=== PATIENT | female | born 1995 | race Two or more races ===

== ENCOUNTER 2024-10-11 07:12 | Outpatient (CLI) | payer OTHER ==
[2024-10-11] MEDS ORDERED: STERILE WATER 10 ML ONE (08:55)
--- NOTE | 2024-10-11 12:31 | DVH ---
CLINICAL INFORMATION: 29 years old, Female; EPIGASTRIC PAIN. TECHNIQUE: 6 mCi of Choletec were administered intravenously. Images of the upper abdomen were obta ined at 1 minute intervals up to a total time of 60 minutes. Subsequently, 1.5 mcg Kinevac was admini stered intravenously, as per protocol, and repeat dynamic anterior regional images of the liver were obtained over an additional 30 minutes. A region of interest was drawn around the gallbladder, from [facility] a gallbladder ejection fraction was obtained. Time/activity profile curves were generated. COMPARISON: None FINDINGS: There is prompt gallbladder visualization. There is excretion of activity from the biliar y ductal system into the small bowel. There is no evidence of acute cholecystitis. The gallbladder ejection fraction is calculated to be 17%. IMPRESSION: 1. No scintigraphic evidence of acute cholecystitis. 2. Abnormal gallbladder ejection fraction of 17%, likely due to functional gallbladder disorder.
== END 2024-10-11 17:00 | disposition home or self-care (01) ==
LOC: XYW 07:12
DX: K82.8 Other specified diseases of gallbladder (principal); R10.13 Epigastric pain
CPT/HCPCS: 78226; A9537

== ENCOUNTER 2024-10-11 07:52 | Emergency (ER) | payer OTHER ==
[~2024-10-11] VITALS: Ht 162.6 cm; Wt 82.4 kg
--- NOTE | 2024-10-11 08:05 | ED.PDOC ---
History of Present Illness HPI Comments 29 year old female presents to the ED for the c/c of Dizziness. Pt was getting a scan here at [facility] when she started feeling N/. Pts HR is noted to have crashed and a rapid response was called to radiology. Pt was noted to be Diaphoretic. Pt notes her last meal was around 9pm last night. No other ass ociated symptoms, modifiers, recent injuries or sick contacts present at this time. 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 History Family History Family History: Reviewed,noncontributory to illness, No family hx of Cancer, No family hx of DM, No family hx of Heart khadar, No family hx of HTN, No family hx ofKidney khadar, No family hx of Liver khadar, No family hx of Lung khadar, No family hx of Stroke Social History Smoker: Non-Smoker Alcohol: Denies ETOH Use Drugs: Denies Drug Use Lives In: Home Constitutional: denies: chills, diaphoresis, fatigue, fever, malaise, sweats, weakness, others EENTM: denies: blurred vision, double vision, ear bleeding, ear discharge, ear drainage, ear pain, ear ringing, eye pain, eye redness, hearing loss, mouth pain, mouth swelling, nasal discharge, nose bleeding, nose congestion, nose pain, photophobia, tearing, throat pain, throat swelling, voice changes, others Respiratory: denies: cough, hemoptysis, orthopnea, SOB at rest, shortness of breath, SOB with excertion, stridor, wheezing, others Cardiovascular: denies: chest pain, dizzy spells, diaphoresis, Dyspnea on exertion, edema, irregular heart beat, left arm pain, lightheadedness, palpitations, PND, syncope, others Gastrointestinal: denies: abdomen distended, abdominal pain, blood streaked bowels, constipated, diarrhea, dysphagia, difficulty swallowing, hematemesis, melena, nausea, poor appetite, poor fluid intake, rectal bleeding, rectal pain, vomiting, others Genitourinary: denies: abnormal vagina bleeding, burning, dyspareunia, dysuria, flank pain, frequency, hematuria, incontinence, pain, , vagina discharge, urgency, others Neurological: reports: dizziness; denies: fainting, headache, left sided numbness, left sided weakness, numbness, paresthesia, pre-existing deficit, right sided numbness, right sided weakness, seizure, speech problems, tingling, tremors, weakness, others Musculoskeletal: denies: back pain, gout, joint pain, joint swelling, muscle pain, muscle stiffness, neck pain, others Integumetry: denies: bruises, change in color, change in hair/nails, dryness, laceration, lesions, lumps, rash, wounds, others Allergic/Immunocompromised: denies: Difficulty Healing, Frequent Infections, Hives, Itching, others Hematologic/Lymphatic: denies: anemia, blood clots, easy bleeding, easy bruising, swollen glands, others Endocrine: denies: excessive hunger, excessive sweating, excessive thirst, excessive urination, flushing, intolerance to cold, intolerance to heat, unexplained weight gain, unexplained weight loss, others Psychiatric: denies: anxiety, bipolar disorder, depression, hopeless, panic disorder, schizophrenia, sleepless, suicidal, others All Other Systems: Reviewed and Negative Physical Exam General Appearance: No Apparent Distress, Normal, Other (Pale appearing) HEENT: Normal ENT Inspection, Pharynx Normal, TMs Normal Neck: Full Range of Motion, Non-Tender, Normal, Normal Inspection Respiratory: Chest Non-Tender, Lungs Clear, No Accessory Muscle Use, No Respiratory Distress, Normal Breath Sounds Cardiovascular: Bradycardia, No Edema, No JVD, No Murmur, Normal Peripheral Pulses, Regular Rate/Rhythm, Other (Diaphorisis) Breast Exam: Deferred Gastrointestinal: Non Tender, No Pulsatile Mass, Normal Bowel Sounds, Soft Genitalia: Deferred Pelvic: Deferred Rectal: Deferred Extremities: No calf tenderness, Normal capillary refill, Normal inspection, Normal range of motion, Non-tender, No pedal edema Musculoskeletal : Apperance: Normal Neurologic: Alert, No Motor Deficits, Normal Mood Cerebellar Function: Normal Reflexes: Normal Skin: Dry, Normal Color, Warm Lymphatic: No Adenopathy Was a procedure done? Was a procedure done?: No Differential Dx Considerations may include: Vasovagal, electrolyte abnormality, infectious etiology, dehydration, hypoglycemia X-Ray, Labs, Meds, VS Vital Signs Date Time Temp Pulse Resp B/P (MAP) Pulse Ox O2 Delivery O2 Flow Rate FiO2 10/11/24 10:00 62 12 116/78 (91) 99 10/11/24 08:12 98.3 61 18 114/71 (85) 97 98.3 10/11/24 08:12 63 16 97 Room Air* 0 21 10/11/24 08:08 61 10/11/24 07:52 98.1 56 20 106/69 (81) 99 98.1 Lab Test 10/11/24 07:50 Range/Units White Blood Count 9.0 4.4-10.8 10^3/uL Red Blood Count 4.97 4.0-5.20 10^6/uL Hemoglobin 14.2 12.2-16.2 g/dL Hematocrit 42.5 36.0-46.0 % Mean Corpuscular Volume 85.5 80.0-100.0 fL Mean Corpuscular Hemoglobin 28.7 28.0-32.0 pg Mean Corpuscular Hemoglobin Concent 33.5 32.0-36.0 g/dL Red Cell Distribution Width 13.4 11.8-14.3 % Platelet Count 225 140-450 10^3/uL Mean Platelet Volume 9.7 6.9-10.8 fL Neutrophils (%) (Auto) 62.6 37.0-80.0 % Lymphocytes (%) (Auto) 27.7 10.0-50.0 % Monocytes (%) (Auto) 8.0 0.0-12.0 % Eosinophils (%) (Auto) 1.4 0.0-7.0 % Basophils (%) (Auto) 0.3 0.0-2.0 % Neutrophils # (Auto) 5.6 1.6-8.6 10 ^3/uL Lymphocytes # (Auto) 2.5 0.4-5.4 10 ^3/uL Monocytes # (Auto) 0.7 0-1.3 10 ^3/uL Eosinophils # (Auto) 0.1 0-0.8 10 ^3/uL Basophils # (Auto) 0 0-0.2 10 ^3/uL Nucleated Red Blood Cells 0.0 % Sodium Level 139 136-145 mmol/L Potassium Level 3.7 3.5-5.1 mmol/L Chloride Level 103 98-107 mmol/L Carbon Dioxide Level 26 20-31 mmol/L Anion Gap 10 5-15 Blood Urea Nitrogen 11 9-23 mg/dL Creatinine 0.90 0.550-1.02 mg/dL Glomerular Filtration Rate Calc 89 >90 mL/min BUN/Creatinine Ratio 12.2 10.0-20.0 Serum Glucose 95 74-106 mg/dL Calcium Level 10.2 8.7-10.4 mg/dL Current Medications Medications (Trade) Dose Ordered Sig/Danii Route Start Time Stop Time Status Last Admin Sodium Chloride 1,000 ml @ 1,000 mls/hr Q1H ONCE IV 10/11/24 08:00 10/11/24 08:59 DC 10/11/24 08:06 Time of 1ST Reevaluation: 08:30 Reevaluation 1ST: Unchanged Patient Education/Counseling: Diagnosis, Treatment Family Education/Counseling: No Family Present SEPSIS Sepsis Screen Orders/Vitals/Labs Physician Orders Electrocardigram (10/11/24 07:56) Vital Signs Date Time Temp Pulse Resp B/P (MAP) Pulse Ox O2 Delivery O2 Flow Rate FiO2 10/11/24 10:00 62 12 116/78 (91) 99 10/11/24 08:12 98.3 61 18 114/71 (85) 97 98.3 10/11/24 08:12 63 16 97 Room Air* 0 21 10/11/24 08:08 61 10/11/24 07:52 98.1 56 20 106/69 (81) 99 98.1 Laboratory Tests Test 10/11/24 07:50 White Blood Count 9.0 10^3/uL (4.4-10.8) Medications Medications Dose Ordered Sig/Danii Route Start Time Stop Time Status Last Admin Dose Admin Sodium Chloride 1,000 ml @ 1,000 mls/hr Q1H ONCE IV 10/11/24 08:00 10/11/24 08:59 DC 10/11/24 08:06 Departure 1 Departure Time of Disposition: 10:39 (Patient likely vasovagal. Patient is feeling significantly better. Workup is normal we will discharge patient home.) Impression: Primary Impression: Vasovagal near-syncope Disposition: 01 HOME / SELF CARE / HOMELESS Condition: Stable Additional Instructions: Your workup today was benign. It is important to stay well hydrated and well rested. Please follow up with the regular doctor next week. Discharged With: Self Critical Care Note Critical Care Time?: Yes Critical care comment: Near-syncope episode Authorized and Performed by: Mohini Boyle MD Total critical care time: Approximately 36 minutes Due to a high probability of clinically significant, life threatening deterioration, the patient required my highest level of preparedness to intervene emergently and I personally spent this critical care time directly and personally managing the patient. This critical care time included obtaining a history; examining the patient; pulse oximetry; ordering and review of studies; arranging urgent treatment with development of a management plan; evaluation of patient's response to treatment; frequent reassessment; and, discussions with other providers. This critical care time was performed to assess and manage the high probability of imminent, life-threatening deterioration that could result in multi-organ failure. It was exclusive of separately billable procedures and treating other patients and teaching time. Please see my other sections and the rest of the note for further information on patient assessment and treatment. Stability Stability form required: No Heart Score Heart Score: Heart Score Response (Comments) Value History N/A 0 EKG N/A 0 Age N/A 0 Risk Factors N/A 0 Troponin N/A 0 Total 0 I personally scribed for MOHINI BOYLE MD ([email or web address]) on 10/11/24 at 08:05. Electronically submitted by Bryson Dowling ([email or web address]). MOHINI BOYLE MD Oct 11, 2024 08:05
[2024-10-11] MEDS: SODIUM CHLORIDE 0.9% 1,000 ML IV ONE (08:06)
[2024-10-11 08:10] LABS: Basophils # (auto) 0 10 ^3/uL (0-0.2); Basophils % (auto) 0.3 % (0.0-2.0); Eosinophils # (auto) 0.1 10 ^3/uL (0-0.8); Eosinophils % (auto) 1.4 % (0.0-7.0); Hematocrit 42.5 % (36.0-46.0); Hemoglobin 14.2 g/dL (12.2-16.2); Lymphocytes # (auto) 2.5 10 ^3/uL (0.4-5.4); Lymphocytes % (auto) 27.7 % (10.0-50.0); Mean Corpuscular Hemoglobin 28.7 pg (28.0-32.0); Mean Corpuscular Hgb Conc. 33.5 g/dL (32.0-36.0); Mean Corpuscular Volume 85.5 fL (80.0-100.0); Monocytes # (auto) 0.7 10 ^3/uL (0-1.3); Neutrophils # (auto) 5.6 10 ^3/uL (1.6-8.6); Neutrophils % (auto) 62.6 % (37.0-80.0); Platelet Count (auto) 225 10^3/uL (140-450); Red Blood Cells 4.97 10^6/uL (4.0-5.20); Red Cell Distribution Width 13.4 % (11.8-14.3)
[2024-10-11 08:12] VITALS: PULSE 63; RESP 16; TEMP 98.3; O2SAT 97
[2024-10-11 08:21] LABS: Chloride 103 mmol/L (98-107); Potassium 3.7 mmol/L (3.5-5.1); Sodium 139 mmol/L (136-145)
[2024-10-11 08:22] LABS: Anion Gap 10 (5-15); Calcium 10.2 mg/dL (8.7-10.4); Carbon Dioxide 26 mmol/L (20-31)
[2024-10-11 08:27] LABS: BUN/Creatinine Ratio 12.2 (10.0-20.0); Blood Urea Nitrogen 11 mg/dL (9-23); Glucose 95 mg/dL (74-106)
[2024-10-11 10:00] VITALS: BP 116/78; PULSE 62; RESP 12; O2SAT 99
--- NOTE | 2024-10-11 18:49 | ECG ---
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
== END 2024-10-11 10:51 | disposition home or self-care (01) ==
LOC: ER 07:52
DX: R42 Dizziness and giddiness (principal); R55 Syncope and collapse; R61 Generalized hyperhidrosis; Z88.5 Allergy status to narcotic agent
CPT/HCPCS: 36415; 80048; 82947; 85025; 93005; 96360; 99284; J7030